=== PATIENT | female | born 1960 | race Caucasian/White ===

== ENCOUNTER 2016-06-05 07:15 | Inpatient (IN) | payer MEDICAID, OTHER ==
[~2016-06-05] VITALS: Ht 170.2 cm; Wt 59.1 kg
[2016-06-05 08:04] LABS: Basophils # (auto) 0 uL; Basophils % (auto) 0.8 % (0.0-2.0); Eosinophils # (auto) 0.1 uL; Eosinophils % (auto) 1.6 % (0.0-7.0); Hematocrit 39.6 % (36.0-46.0); Hemoglobin 12.8 g/dL (12.2-16.2); Lymphocytes # (auto) 1.5 uL; Lymphocytes % (auto) 29.8 % (10.0-50.0); Mean Corpuscular Hgb Conc. 32.2 g/dL (32.0-36.0); Mean Corpuscular Volume 96.3 fL (80.0-100.0); Mean Platelet Volume 8.6 fL (7.4-10.4); Monocytes # (auto) 0.4 uL; Monocytes % (auto) 7.6 % (0.0-12.0); Neutrophils % (auto) 60.2 % (37.0-80.0); Platelet Count (auto) 274 10^3/uL (140-450); Red Cell Distribution Width 14.1 % (11.6-16.0)
[2016-06-05 08:38] LABS: Albumin 3.7 g/dL (3.4-5.0); BUN/Creatinine Ratio 13.7; Bilirubin, Total 0.4 mg/dL (0.2-1.0); Potassium 3.6 mmol/L (3.5-5.1); Total Protein 6.9 g/dL (6.4-8.2)
[2016-06-05 09:30] LABS: Urine RBC None Seen /hpf (0 - 4)
[2016-06-05 09:41] LABS: Urine Bilirubin Negative (Negative); Urine Blood Negative /uL (Negative); Urine Color Yellow (Yellow); Urine Glucose Normal (Normal); Urine Ketone TRACE (Negative); Urine Nitrite Negative (Negative); Urine Squamous Epithelial Cell FEW /hpf (<5); Urine Urobilinogen Normal (Negative); Urine pH 5.5 (5.0-8.0)
[2016-06-05] MEDS ORDERED: ONDANSETRON HCL 4 MG/2 ML VIAL IV ONE (09:45)
[2016-06-05] MEDS ORDERED: PANTOPRAZOLE SODIUM 40 MG/10 ML VIAL IV ONE (09:45)
[2016-06-05] MEDS ORDERED: MORPHINE SULFATE 4 MG/ML SYRG IV ONE (09:45)
[2016-06-05] MEDS ORDERED: SODIUM CHLORIDE 0.9% 1,000 ML IV ONE (09:45)
[2016-06-05] MEDS ORDERED: MORPHINE SULF INJ 2 MG/ML SYRINGE 1ML IV ONE (10:00)
[2016-06-05] MEDS ORDERED: HYDROcodone-ACET 5/325MG TAB PO PRN (13:45)
[2016-06-05] MEDS ORDERED: NITROGLYCERIN 0.4 MG SL TAB SL PRN (13:45)
[2016-06-05] MEDS ORDERED: LORazepam 0.5 MG TAB PO PRN (13:45)
[2016-06-05] MEDS ORDERED: DEXTROSE (50%) 50ML SYRG IV PRN (13:45)
[2016-06-05] MEDS ORDERED: FAMOTIDINE (10MG/ML) 2ML VL IV SCH (13:45)
[2016-06-05] MEDS ORDERED: MORPHINE SULF INJ 2 MG/ML SYRINGE 1ML IV PRN (13:45)
[2016-06-05] MEDS: SODIUM CHLORIDE 0.9% 1,000 ML IV SCH (14:13)
[2016-06-05 15:21] LABS: INR 1.05 (0.9-1.15); Partial Thromboplastin Time 27.9 sec (22.64-33.71); Prothrombin Time 10.8 sec (9.37-12.3)
[2016-06-05] MEDS: MORPHINE SULF INJ 2 MG/ML SYRINGE 1ML IV PRN ×2 (16:14→20:59)
[2016-06-05 17:13] VITALS: BP 121/75
[2016-06-05 17:35] VITALS: BP 121/75
[2016-06-05] MEDS: InsuLIN REG 1unit/0.01ml Soln (100units/ml) SC SCH (18:00)
[2016-06-05] MEDS: ACCU-CHEK COMFORT CURVE STRIP VI SCH (18:02)
[2016-06-05] MEDS ORDERED: PRAV20TA3 PO (18:37)
[2016-06-05] MEDS ORDERED: LISI2.5T47 PO (18:37)
[2016-06-05] MEDS ORDERED: TAM04C PO (18:37)
[2016-06-05] MEDS ORDERED: ESTR2TAB PO (18:37)
[2016-06-05] MEDS ORDERED: DIAZ10TA3 PO (18:37)
[2016-06-05] MEDS ORDERED: ALEN70SO PO (18:37)
[2016-06-05] MEDS ORDERED: GLIP-115 PO (18:37)
[2016-06-05] MEDS ORDERED: GABA-339 PO (18:37)
[2016-06-05] MEDS ORDERED: NOR5T PO (18:37)
[2016-06-05] MEDS ORDERED: METH-171 PO (18:37)
[2016-06-05] MEDS ORDERED: GEMF600T3 PO (18:41)
[2016-06-05] MEDS: TEMAZEPAM 15 MG CAP PO PRN (21:45)
[2016-06-05] MEDS: PANTOPRAZOLE 40 MG TAB PO SCH (21:45)
[2016-06-05] MEDS ORDERED: METHOCARBAMOL 750 MG PO PRN (21:45)
[2016-06-05 22:00] VITALS: BP 118/70
[2016-06-05] MEDS ORDERED: PATIENTS OWN MEDICATION (Gabapentin 600 MG) PO SCH ×2 (22:00)
[2016-06-06] MEDS: PRAVASTATIN SODIUM 20 MG TAB PO SCH ×2 (00:14→21:37)
[2016-06-06] MEDS: GEMFIBROZIL 600 MG TAB PO SCH ×3 (00:14→21:35)
[2016-06-06] MEDS: ACCU-CHEK COMFORT CURVE STRIP VI SCH ×4 (00:15→17:34)
[2016-06-06] MEDS: ACETAMINOPHEN 500 MG TAB PO PRN ×2 (00:39→08:35)
[2016-06-06] MEDS: SODIUM CHLORIDE 0.9% 1,000 ML IV SCH ×3 (02:14→19:33)
[2016-06-06] MEDS: MORPHINE SULF INJ 2 MG/ML SYRINGE 1ML IV PRN ×4 (02:15→21:34)
[2016-06-06 05:00] VITALS: BP 135/81
[2016-06-06 05:53] VITALS: BP 114/73
[2016-06-06] MEDS: InsuLIN REG 1unit/0.01ml Soln (100units/ml) SC SCH ×4 (06:00→17:59)
[2016-06-06] MEDS ORDERED: METHOCARBAMOL 500 MG TAB PO PRN (06:30)
[2016-06-06 06:36] LABS: Amylase 20 U/L (25-115)
[2016-06-06 06:42] LABS: BUN/Creatinine Ratio 10.8; Bilirubin, Total 0.3 mg/dL (0.2-1.0); Calcium 8.2 mg/dL (8.5-10.1); Potassium 3.6 mmol/L (3.5-5.1); Total Protein 5.6 g/dL (6.4-8.2)
[2016-06-06 07:07] LABS: Basophils # (auto) 0 uL; Basophils % (auto) 0.6 % (0.0-2.0); Eosinophils # (auto) 0.1 uL; Eosinophils % (auto) 1.8 % (0.0-7.0); Hematocrit 35.2 % (36.0-46.0); Hemoglobin 11.3 g/dL (12.2-16.2); Lymphocytes # (auto) 2.1 uL; Lymphocytes % (auto) 47.7 % (10.0-50.0); Mean Corpuscular Hemoglobin 30.9 pg (28.0-32.0); Mean Corpuscular Hgb Conc. 32.2 g/dL (32.0-36.0); Mean Corpuscular Volume 96.1 fL (80.0-100.0); Mean Platelet Volume 9.7 fL (7.4-10.4); Monocytes # (auto) 0.4 uL; Neutrophils # (auto) 1.7 uL; Neutrophils % (auto) 39.9 % (37.0-80.0); Platelet Count (auto) 231 10^3/uL (140-450); Red Cell Distribution Width 13.9 % (11.6-16.0); White Blood Cell 4.4 10^3/uL (4.4-10.8)
[2016-06-06 08:19] VITALS: BP 118/74
[2016-06-06] MEDS ORDERED: DIAZEPAM 5 MG PO SCH (10:00)
[2016-06-06] MEDS ORDERED: PATIENTS OWN MEDICATION (Lisinopril 5 MG) PO SCH ×2 (10:00)
[2016-06-06] MEDS: PROMETHAZINE HCL 25 MG/ML 1ML IV PRN ×2 (10:35→21:42)
[2016-06-06 11:43] VITALS: BP 133/76
[2016-06-06] MEDS: TAMSULOSIN HYDROCHLORIDE 0.4 MG CAP PO SCH (12:03)
[2016-06-06] MEDS: DIAZEPAM 5 MG TAB PO SCH (12:04)
[2016-06-06] MEDS: PANTOPRAZOLE 40 MG TAB PO SCH ×2 (12:04→21:35)
[2016-06-06] MEDS: LISINOPRIL 5 MG TAB PO SCH (12:05)
[2016-06-06 13:17] LABS: INR 1.06 (0.9-1.15); Prothrombin Time 10.9 sec (9.37-12.3)
[2016-06-06] MEDS: GABAPENTIN 300 MG CAP PO SCH ×2 (14:41→21:35)
[2016-06-06 16:48] VITALS: BP 125/69
[2016-06-06] MEDS: TEMAZEPAM 15 MG CAP PO PRN (21:36)
[2016-06-06 22:00] VITALS: BP 136/76
[2016-06-07] MEDS: PROMETHAZINE HCL 25 MG/ML 1ML IV PRN ×2 (04:11→12:50)
[2016-06-07] MEDS: MORPHINE SULF INJ 2 MG/ML SYRINGE 1ML IV PRN ×4 (04:16→17:01)
[2016-06-07 05:00] VITALS: BP 103/65
[2016-06-07] MEDS: SODIUM CHLORIDE 0.9% 1,000 ML IV SCH ×2 (05:33→15:33)
[2016-06-07] MEDS: ACCU-CHEK COMFORT CURVE STRIP VI SCH ×4 (05:38→18:15)
[2016-06-07] MEDS: InsuLIN REG 1unit/0.01ml Soln (100units/ml) SC SCH ×4 (05:38→18:00)
[2016-06-07] MEDS: GABAPENTIN 300 MG CAP PO SCH ×2 (05:39→15:22)
[2016-06-07 06:14] LABS: Basophils # (auto) 0 uL; Basophils % (auto) 0.6 % (0.0-2.0); Eosinophils # (auto) 0.1 uL; Eosinophils % (auto) 1.2 % (0.0-7.0); Hematocrit 33.8 % (36.0-46.0); Lymphocytes # (auto) 2.1 uL; Lymphocytes % (auto) 48.3 % (10.0-50.0); Mean Corpuscular Hemoglobin 31.1 pg (28.0-32.0); Mean Corpuscular Hgb Conc. 32.5 g/dL (32.0-36.0); Mean Corpuscular Volume 95.8 fL (80.0-100.0); Mean Platelet Volume 9.4 fL (7.4-10.4); Monocytes # (auto) 0.4 uL; Monocytes % (auto) 9.2 % (0.0-12.0); Neutrophils # (auto) 1.8 uL; Neutrophils % (auto) 40.7 % (37.0-80.0); Platelet Count (auto) 238 10^3/uL (140-450); Red Cell Distribution Width 13.7 % (11.6-16.0); White Blood Cell 4.4 10^3/uL (4.4-10.8)
[2016-06-07 06:23] LABS: Calcium 8.4 mg/dL (8.5-10.1); Magnesium 1.7 mg/dL (1.6-2.6); Potassium 3.4 mmol/L (3.5-5.1)
[2016-06-07] MEDS ORDERED: AMITRIP PO (07:19)
[2016-06-07] MEDS ORDERED: NORT25CA PO (07:20)
[2016-06-07 09:00] VITALS: BP 108/69
[2016-06-07] MEDS ORDERED: LIDOCAINE VISCOUS 2% 15ML UD ONE (11:17)
[2016-06-07] MEDS ORDERED: diphenhdrAMINE HCL 50 MG/1 ML VL ONE (11:17)
[2016-06-07] MEDS ORDERED: SODIUM CHLORIDE LOCK 10 ML ONE (11:17)
[2016-06-07] MEDS: fentaNYL CITRATE 100 MCG/2 ML VL ONE ×2 (11:30→11:33)
[2016-06-07] MEDS: MIDAZOLAM HCL 5 MG/ML-1ML VIAL ONE ×2 (11:30→11:33)
[2016-06-07] MEDS: GEMFIBROZIL 600 MG TAB PO SCH (12:42)
[2016-06-07] MEDS: PANTOPRAZOLE 40 MG TAB PO SCH (12:42)
[2016-06-07] MEDS: TAMSULOSIN HYDROCHLORIDE 0.4 MG CAP PO SCH (12:42)
[2016-06-07] MEDS: DIAZEPAM 5 MG TAB PO SCH (12:42)
[2016-06-07] MEDS: LISINOPRIL 5 MG TAB PO SCH (12:42)
[2016-06-07 13:00] VITALS: BP 125/75
[2016-06-07 14:42] VITALS: BP 115/55
[2016-06-07 17:00] VITALS: BP 104/60
[2016-06-07] MEDS ORDERED: SUCRALFATE 1 GM TAB PO SCH (17:00)
== END 2016-06-07 18:35 | disposition home or self-care (01) | DRG 241 ==
LOC: ER 07:27 → TELE-EAST 07:28
PROVIDERS: ADMIT Internal Medicine; ATTEND Internal Medicine
PROC: 0DB68ZX Excision of Stomach, Via Natural or Artificial Opening Endoscopic, Diagnostic (ICD-10-PCS; principal; 2016-06-07 11:27)
DX: K27.9 Peptic ulcer, site unspecified, unspecified as acute or chronic, without hemorrhage or perforation (principal); E87.8 Other disorders of electrolyte and fluid balance, not elsewhere classified; E66.01 Morbid (severe) obesity due to excess calories; K80.70 Calculus of gallbladder and bile duct without cholecystitis without obstruction; E78.5 Hyperlipidemia, unspecified; E11.9 Type 2 diabetes mellitus without complications; Z82.49 Family history of ischemic heart disease and other diseases of the circulatory system; Z98.84 Bariatric surgery status; Z68.20 Body mass index [BMI] 20.0-20.9, adult; Z95.1 Presence of aortocoronary bypass graft; Z71.6 Tobacco abuse counseling; M19.90 Unspecified osteoarthritis, unspecified site; Z23 Encounter for immunization
CPT/HCPCS: 36415; 43239; 71010; 76705; 80048; 80053; 81001; 82150; 82962; 83036; 83690; 83735; 84484; 85025; 85049; 85610; 85730; 93005; 96374; 96375; C9113; J2250; J2405; J3490

== ENCOUNTER 2016-06-26 05:21 | Emergency (ER) | payer MEDICAID ==
[~2016-06-26] VITALS: Ht 170.2 cm; Wt 57.2 kg
[~2016-06-26 05:21] MED LIST: ALEN70SO PO; DIAZ10TA3 PO; ESTR2TAB PO; GABA-339 PO; GEMF600T3 PO; GLIP-115 PO; LISI2.5T47 PO; METH-171 PO; NOR5T PO; NORT25CA PO; PRAV20TA3 PO; TAM04C PO
[2016-06-26 05:30] VITALS: BP 122/72
[2016-06-26 06:08] LABS: Basophils # (auto) 0 uL; Basophils % (auto) 0.1 % (0.0-2.0); Eosinophils # (auto) 0 uL; Eosinophils % (auto) 0.1 % (0.0-7.0); Hemoglobin 12.6 g/dL (12.2-16.2); Lymphocytes # (auto) 0.8 uL; Lymphocytes % (auto) 8.5 % (10.0-50.0); Mean Corpuscular Hemoglobin 29.6 pg (28.0-32.0); Mean Corpuscular Hgb Conc. 31.4 g/dL (32.0-36.0); Mean Corpuscular Volume 94.3 fL (80.0-100.0); Monocytes # (auto) 0.5 uL; Monocytes % (auto) 5.2 % (0.0-12.0); Neutrophils # (auto) 7.9 uL; Neutrophils % (auto) 86.1 % (37.0-80.0); Platelet Count (auto) 280 10^3/uL (140-450); Red Cell Distribution Width 13.6 % (11.6-16.0); White Blood Cell 9.2 10^3/uL (4.4-10.8)
[2016-06-26 06:34] LABS: Albumin 3.4 g/dL (3.4-5.0); Bilirubin, Total 0.4 mg/dL (0.2-1.0); Calcium 9.1 mg/dL (8.5-10.1); Magnesium 1.9 mg/dL (1.6-2.6)
[2016-06-26 06:40] LABS: Amylase 30 U/L (25-115)
== END 2016-06-26 12:54 | disposition left against medical advice (07) ==
LOC: ER 05:22
DX: M54.9 Dorsalgia, unspecified (principal); R51 Headache; R10.11 Right upper quadrant pain; Z53.21 Procedure and treatment not carried out due to patient leaving prior to being seen by health care provider
CPT/HCPCS: 36415; 71020; 80053; 82150; 83690; 83735; 84484; 85025; 93005